=== PATIENT | female | born 1940 | race Two or more races ===

== ENCOUNTER 2022-10-02 20:21 | Inpatient (IN) | payer MEDICARE ==
[~2022-10-02] VITALS: Ht 172.7 cm; Wt 61.2 kg
[2022-10-02] MEDS ORDERED: ACETAMINOPHEN 325 MG TABLET PO ONE (21:30)
--- NOTE | 2022-10-02 21:30 | NUR ---
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 PATIENT IS AAOX4. ABLE TO MAKE NEEDS KNOWN. PATIENT REFUSED TO HAVE HIS RIGHT LEG REPOSITIONED BECAUSE IT WILL CAUSE HER TOO MUCH PAIN. VITALS CHECKED.
[2022-10-02] MEDS ORDERED: ACETAMINOPHEN 325 MG TABLET ONE (21:33)
--- NOTE | 2022-10-02 21:46 | NUR ---
X-RAY AT BEDSIDE
--- NOTE | 2022-10-02 22:02 | NUR ---
COVID TEST DONE, SENT TO LAB
--- NOTE | 2022-10-02 22:37 | NUR ---
PATIENT TAKEN TO CT
[2022-10-02 22:44] LABS: BASOPHILS # (AUTO) 0.1 K/uL (0.0-0.2); BASOPHILS % (AUTO) 0.4 % (0.0-2.0); EOSINOPHILS % (AUTO) 0.1 % (0.0-6.0); HEMATOCRIT 32 % (33-45); HEMOGLOBIN 10.6 g/dL (11.5-14.8); LYMPHOCYTES # (AUTO) 0.4 K/uL (0.8-4.8); LYMPHOCYTES % (AUTO) 2.1 % (20.0-44.0); MEAN CORPUSCULAR HGB CONC 33 g/dl (31.0-36.0); MEAN CORPUSCULAR VOLUME 99 fL (82-100); MONOCYTES # (AUTO) 0.8 K/uL (0.1-1.30); MONOCYTES % (AUTO) 4.1 % (2.0-12.0); NEUTROPHILS % (AUTO) 93.3 % (43.0-81.0); PLATELET COUNT (AUTO) 298 K/uL (150-450); RED BLOOD CELL COUNT(AUTO) 3.27 MIL/uL (4.0-5.2); WHITE BLOOD COUNT (AUTO) 20.3 K/uL (4.3-11.0)
--- NOTE | 2022-10-02 22:45 | NUR ---
BACK FROM CT
[2022-10-02] MEDS ORDERED: MORPHINE SULFATE INJ 4 MG/ML DISP.SYRIN ONE (22:46)
--- NOTE | 2022-10-02 22:55 | NUR ---
GIVEN IVP MORPHINE 4MG SLOWLY OREDERED BY DR OBIE Faustin
[2022-10-02 22:57] LABS: CALCIUM, SERUM 8.9 mg/dL (8.5-10.1); CARBON DIOXIDE 25 mmol/L (21-32); CHLORIDE 95 mmol/L (98-107); CREATININE 1.2 mg/dL (0.6-1.3); GLUCOSE 154 mg/dL (74-106); POTASSIUM 5.4 mmol/L (3.5-5.1); SODIUM SERUM 128 mmol/L (136-145); UREA NITROGEN, BLOOD 21 mg/dL (7-18)
[2022-10-02] MEDS ORDERED: MORPHINE SULFATE INJ 2 MG/ML DISP.SYRIN IV ONE (23:00)
--- NOTE | 2022-10-02 23:14 | NUR ---
DR. RAGLAND ON PHONE WITH MALOU TEIXEIRA FOR CONSULT.
[2022-10-02] MEDS ORDERED: IV NS 0.9% 1,000 ML IV ONE (23:30)
[2022-10-02] MEDS ORDERED: HYDROMORPHONE 1 MG/1 ML DISP.SYRIN IV ONE (23:30)
[2022-10-03] MEDS ORDERED: ACETAMINOPHEN 325 MG TABLET PO PRN
[2022-10-03] MEDS ORDERED: ONDANSETRON HCL/PF 4 MG/2 ML VIAL IVP PRN
--- NOTE | 2022-10-03 | NUR ---
patient taken to ct
--- NOTE | 2022-10-03 00:11 | NUR ---
back from ct
--- NOTE | 2022-10-03 00:12 | NUR ---
REPORT GIVEN TO BREANA YEE
--- NOTE | 2022-10-03 00:55 | NUR ---
JORDAN RECEIVED FROM ER VIA GURCHARLY AN 82 Y/O FEMALE S/P FALL AT HOME TRANSFRRED TO BED, IN SEVERE HIP PAIN, WITH AUDIBLE WHEEZING BRANDON LUNG REINOSO. STATES SHE IS 02 DEPENDENT AND COPD. SMOKING HALF PACK A DAY TILL PRESENT. UNABLE TO ANSWER MUCH SEC TO SOB AND SEVERE PAIN. PRESENT IVF TO CONSUME INFUSING AT 75CC/HR. RIGHT LEG UNDERNEATH LEFT LEG, UNABLE TO STRAIGHTEN AND SO LEFT LEG STATES UPON MINIMAL EXERTION PAIN RADIATING TO RIGHT HIP WHICH WAS SAID TO BE UNBEARABLE. MAINTAINED 02 AT 2 LITERS V/S MONITORED. TRYING TO C PADMA DOWN. PAIN MGT DISCUSSED TO PT, INSISTING TO HAVE MORE PAIN MED. NO FURTHER ORDERS FROM MD. NEED ORTH MD TO SEE PATIENT TODAY. WILL KEEP PATIENT NPO FOR NOW. TO CONTINUE.
[2022-10-03 01:00] VITALS: BP 138/64
--- NOTE | 2022-10-03 01:05 | NUR ---
TRANSFERRED TO ROOM
--- NOTE | 2022-10-03 01:10 | NUR ---
MSRN REFUSED TO HAVE OLD BEDSHEETS REMOVED AND OWN CLOTHES SEC TO SEVERE HIP AND LEG PAIN AND GETTING SOB ON MINIMAL EXERTION . WANTED TO HAVE MORE TIME TO REST OF THIS TIME. WAN STANDBY REQUESTED. WILL CALL ONCE READY.
[2022-10-03] MEDS ORDERED: ENOXAPARIN SODIUM 40 MG/0.4 ML DISP.SYRIN SQ ONE (01:35)
[2022-10-03] MEDS: IV NS 0.9% 1,000 ML IV SCH ×3 (01:53→23:22)
[2022-10-03] MEDS ORDERED: VANCOMYCIN 1 GM /D5W 250 ML PB IV ONE (01:56)
[2022-10-03] MEDS ORDERED: CEFEPIME 1 GM in IV D5W 50 ML IV ONE (02:00)
[2022-10-03] MEDS ORDERED: CEFEPIME 1 GM VIAL ONE (02:15)
[2022-10-03] MEDS ORDERED: VANCOMYCIN 1 GM in IV D5W 250ml IV ONE (02:30)
[2022-10-03] MEDS: MORPHINE SULFATE INJ 2 MG/ML DISP.SYRIN IV PRN ×4 (03:50→17:55)
--- NOTE | 2022-10-03 04:16 | NUR ---
JORDAN LOVE STARTED TO BE FOLLOWED BY MAXIPIME IV. ELEVATED WBC.
[2022-10-03] MEDS ORDERED: POTA20TA83 PO (04:27)
[2022-10-03] MEDS ORDERED: ASPI-1169 PO (04:27)
[2022-10-03] MEDS ORDERED: LISI20TA31 PO (04:27)
[2022-10-03] MEDS ORDERED: ALBU2.5V38 IH (04:27)
[2022-10-03] MEDS ORDERED: FERR15DR23 PO (04:27)
[2022-10-03] MEDS ORDERED: COMBIVENT INH (04:27)
[2022-10-03] MEDS ORDERED: BUDE10.2 INH (04:27)
[2022-10-03] MEDS ORDERED: ACET-73 PO (04:27)
[2022-10-03] MEDS ORDERED: [UNRECOGNIZED DRUG - OTHER] INH (04:27)
[2022-10-03] MEDS ORDERED: [UNRECOGNIZED DRUG - CODE] EACHEYE (04:27)
[2022-10-03] MEDS ORDERED: FOLI1CAP7 PO (04:27)
[2022-10-03] MEDS ORDERED: MECO10005 PO (04:27)
[2022-10-03] MEDS ORDERED: FURO20TA4 PO (04:27)
[2022-10-03] MEDS ORDERED: CHOL200013 PO (04:27)
[2022-10-03] MEDS ORDERED: MV-M1CAP18 EACHEYE (04:27)
--- NOTE | 2022-10-03 06:30 | NUR ---
MSRN AGREED TO HAVE GOWN ON, AND PANTS CUTOFF. ABLE TO REPOSITIONED RIGHT LEG THIS TIME SUPPORTED WITH PILLOWS. AGREED TO HAVE VALUABLES PLACE TO SAFE. WILL ENDORSED TO INCOMING RN
[2022-10-03 06:51] LABS: BASOPHILS % (AUTO) 0.1 % (0.0-2.0); HEMATOCRIT 29 % (33-45); HEMOGLOBIN 9.5 g/dL (11.5-14.8); LYMPHOCYTES # (AUTO) 0.7 K/uL (0.8-4.8); LYMPHOCYTES % (AUTO) 4.2 % (20.0-44.0); MEAN CORPUSCULAR HGB CONC 33 g/dl (31.0-36.0); MEAN CORPUSCULAR VOLUME 99 fL (82-100); MONOCYTES # (AUTO) 1.4 K/uL (0.1-1.30); MONOCYTES % (AUTO) 8.5 % (2.0-12.0); NEUTROPHILS # (AUTO) 14.8 K/uL (1.8-8.9); NEUTROPHILS % (AUTO) 87.2 % (43.0-81.0); PLATELET COUNT (AUTO) 293 K/uL (150-450); RED BLOOD CELL COUNT(AUTO) 2.92 MIL/uL (4.0-5.2); WHITE BLOOD COUNT (AUTO) 16.9 K/uL (4.3-11.0)
[2022-10-03 07:00] VITALS: BP 113/59
[2022-10-03 07:18] LABS: ALANINE AMINOTRANSFERASE 31 U/L (12-78); ALBUMIN 3.8 g/dL (3.4-5.0); ALKALINE PHOSPHATASE 91 U/L (46-116); ASPARTATE AMINOTRANSFERASE 29 U/L (15-37); BILIRUBIN,TOTAL 0.6 mg/dL (0.2-1.0); CALCIUM, SERUM 8.8 mg/dL (8.5-10.1); CARBON DIOXIDE 26 mmol/L (21-32); CHLORIDE 95 mmol/L (98-107); CREATININE 1.9 mg/dL (0.6-1.3); GLUCOSE 148 mg/dL (74-106); MAGNESIUM 2.3 mg/dL (1.8-2.4); PHOSPHORUS 5.4 mg/dL (2.5-4.9); POTASSIUM 5.3 mmol/L (3.5-5.1); SODIUM SERUM 129 mmol/L (136-145); TOTAL PROTEIN, SERUM 6.3 g/dL (6.4-8.2); UREA NITROGEN, BLOOD 27 mg/dL (7-18)
--- NOTE | 2022-10-03 07:48 | NUR ---
MS RN OPENING NOTE RECEIVED PATIENT AWAKE IN BED, A/O X 4, ON 02 NC AT 2L. NO S/S OF DISTRESS NOTED; WITH IV ACCESS AT LAC G#20 NS @ 75ML PER HOUR; NO PAIN AT THIS TIME. ENCOURAGED VERBALIZATION OF NEEDS; SAFETY MEASURES IMPLEMENTED, BED LOCKED IN LOWEST POSITION, SIDE RAILS UP X 2, CALL LIGHT WITHIN REACH, BED ALARM ON; WILL CONTINUE TO MONITOR THROUGHOUT SHIFT
[2022-10-03] MEDS: ALBUTEROL FS 2.5 MG/3 ML VIAL.NEB NEB SCH ×4 (08:27→20:52)
[2022-10-03] MEDS: IPRATROPIUM NEB FS 0.5 MG/2.5 ML AMPUL.NEB NEB SCH ×4 (08:27→20:52)
--- NOTE | 2022-10-03 08:53 | NUR ---
RN NOTE PATIENT COMPLAINED OF RIGHT HIP PAIN. RATE 9/10. MORPHINE 2MG GIVEN. WILL CONTINUE TO MONITOR PATIENT.
[2022-10-03] MEDS ORDERED: VANCOMYCIN 500 MG in IV D5W 100 ML IV ONE (10:00)
--- NOTE | 2022-10-03 10:00 | NUR ---
RN NOTES DR. BYRD ORDERED A LAZCANO CATH FOR THE PATIENT. LAZCANO CATHETER DONE. NO BLEEDING. CLEAR URINE. WILL CONTINUE TO MONITOR PATIENT.
[2022-10-03] MEDS ORDERED: SODIUM POLYSTYRENE SULF. PWD 15 GM UDC PO ONE (10:30)
[2022-10-03] MEDS: methylPREDNISolone SOD SUCC 125 MG/2ML VIAL IV SCH ×3 (11:02→21:29)
[2022-10-03] MEDS: CEFEPIME 2 GM in IV D5W 100 ML IV SCH (11:11)
[2022-10-03] MEDS ORDERED: LATA2.5D15 EACHEYE (12:28)
[2022-10-03] MEDS ORDERED: FERR325T24 PO (12:28)
[2022-10-03] MEDS ORDERED: FOLI0.4T6 PO (12:28)
[2022-10-03] MEDS ORDERED: IPRA4AER IH (12:28)
[2022-10-03] MEDS ORDERED: CYAN-51 PO (12:28)
[2022-10-03] MEDS ORDERED: CHOL100043 PO (12:28)
--- NOTE | 2022-10-03 13:06 | NUR ---
RN NOTE PATIENT COMPLAINED OF RIGHT HIP PAIN. RATE 9/10. MORPHINE 2MG GIVEN. WILL CONTINUE TO MONITOR PATIENT.
[2022-10-03] MEDS ORDERED: ALBUTEROL FS 2.5 MG/3 ML VIAL.NEB IH PRN (14:30)
[2022-10-03] MEDS ORDERED: Medication Not On Formulary EA (Ipratropium/Albuterol Sulfate (Combivent Respimat 20-100 IH PRN (14:30)
[2022-10-03] MEDS: BUDESONIDE RESPULE INH 0.5 MG/2 ML AMPUL.NEB NEB SCH ×2 (15:53→20:52)
[2022-10-03 16:00] VITALS: BP 100/52
[2022-10-03] MEDS ORDERED: Medication Not On Formulary EA (Budesonide/Formoterol Fumarate (Symbicort 160-4.5 Mcg In INH SCH (17:00)
--- NOTE | 2022-10-03 17:55 | NUR ---
RN NOTE PATIENT COMPLAINED OF RIGHT HIP PAIN. RATE 9/10. MORPHINE 2MG GIVEN. WILL CONTINUE TO MONITOR PATIENT.
--- NOTE | 2022-10-03 18:43 | NUR ---
MS RN OPENING NOTE PATIENT AWAKE IN BED USING HER PHONE, A/O X 4, ON NC AT 2L. NO S/S OF DISTRESS NOTED; WITH IV ACCESS AT L WRIST G#22 NS @ 125ML PER HOUR; WITH LAZCANO CATHETER FR 16. DUE MEDS GIVEN. ENCOURAGED VERBALIZATION OF NEEDS; SAFETY MEASURES IMPLEMENTED, BED LOCKED IN LOWEST POSITION, SIDE RAILS UP X 2, CALL LIGHT WITHIN REACH, BED ALARM ON; WILL ENDORSE TO THE SMALL PRODUCTS II ASSEMBLER NURSE FOR PILI. Addendum: 10/03/22 at 1856 by MALLORIE KUMRAI RN MS RN CLOSING NOTE
--- NOTE | 2022-10-03 19:30 | NUR ---
MSRN AWAKENED WHEN CALLED RIGHT HIP PAIN TOLERABLE STATED PAIN TOLERABLE WHEN NOT MOVING. LAZCANO TO GRAVITY OUTPUT MONITORED. NPO FOR SURGERY PRATIK AT 1730. AUDIBLE WHEEZING, ON HHN TREATMENT Q 6HR PRN. PRESENT IVF INFUSING WELL REMINDED TO CALL STAFF FOR ANY DISCOMFORTS. CALL LIGHT WITHIN REACH, TO CONTINUE.
[2022-10-03 20:00] VITALS: BP 102/55
[2022-10-03] MEDS: LATANOPROST EYE DROP 0.005% 2.5 ML BOTTLE EACHEYE SCH (21:29)
--- NOTE | 2022-10-03 22:20 | NUR ---
MSRN OFFERED PAIN MED STATED NOT FOR NOW AND WILL CALL IF NEEDED. STILL REFUSED TO REMOVE BEDSHEETS UNDERNEATH HER, STATED SLIGHT MOVEMENT WILL CAUSE HER SPASM.. NO OTHER NEEDS MADE CLOSELY WATCHED..
[2022-10-04] MEDS ORDERED: ENOXAPARIN SODIUM 40 MG/0.4 ML DISP.SYRIN SQ SCH
[2022-10-04] MEDS: IPRATROPIUM NEB FS 0.5 MG/2.5 ML AMPUL.NEB NEB SCH ×6 (02:17→21:07)
[2022-10-04] MEDS: ALBUTEROL FS 2.5 MG/3 ML VIAL.NEB NEB SCH ×5 (02:17→21:07)
[2022-10-04] MEDS: methylPREDNISolone SOD SUCC 125 MG/2ML VIAL IV SCH ×3 (05:31→22:44)
[2022-10-04] MEDS: IV NS 0.9% 1,000 ML IV SCH (05:38)
[2022-10-04 05:48] LABS: BILIRUBIN,URINE 1+ (NEGATIVE); COLOR,URINE DARK YELLOW (YELLOW); EOSINOPHIL,URINE None Seen; LEUKOCYTE ESTERASE ,URINE NEGATIVE (NEGATIVE); NITRITE, URINE NEGATIVE (NEGATIVE); PH,URINE 5.5 (5.0-8.0); PROTEIN,URINE NEGATIVE (NEGATIVE); UGLUCOSE NEGATIVE (NEGATIVE); UROBILINOGEN,URINE 0.2 EU/dL (0.2)
[2022-10-04 05:50] LABS: BACTERIA,URINE Rare /HPF (None Seen); RBC,URINE 0-2 /HPF (0-2); SQUAMOUS EPITHELIAL CELL,UR Few /HPF (None Seen); WBC,URINE 0-2 /HPF (0-3)
[2022-10-04] MEDS: MORPHINE SULFATE INJ 2 MG/ML DISP.SYRIN IV PRN (06:13)
[2022-10-04 06:20] LABS: HEMATOCRIT 25 % (33-45); HEMOGLOBIN 8.3 g/dL (11.5-14.8); LYMPHOCYTES # (AUTO) 0.3 K/uL (0.8-4.8); LYMPHOCYTES % (AUTO) 1.9 % (20.0-44.0); MEAN CORPUSCULAR HGB CONC 33 g/dl (31.0-36.0); MEAN CORPUSCULAR VOLUME 99 fL (82-100); MONOCYTES # (AUTO) 0.5 K/uL (0.1-1.30); MONOCYTES % (AUTO) 3.6 % (2.0-12.0); NEUTROPHILS # (AUTO) 14.4 K/uL (1.8-8.9); NEUTROPHILS % (AUTO) 94.5 % (43.0-81.0); PLATELET COUNT (AUTO) 231 K/uL (150-450); RED BLOOD CELL COUNT(AUTO) 2.53 MIL/uL (4.0-5.2); WHITE BLOOD COUNT (AUTO) 15.2 K/uL (4.3-11.0)
[2022-10-04 06:50] LABS: ALANINE AMINOTRANSFERASE 41 U/L (12-78); ALBUMIN 3.2 g/dL (3.4-5.0); ALKALINE PHOSPHATASE 76 U/L (46-116); ASPARTATE AMINOTRANSFERASE 73 U/L (15-37); BILIRUBIN,TOTAL 0.4 mg/dL (0.2-1.0); CALCIUM, SERUM 8.3 mg/dL (8.5-10.1); CARBON DIOXIDE 21 mmol/L (21-32); CHLORIDE 98 mmol/L (98-107); CREATININE 1.6 mg/dL (0.6-1.3); GLUCOSE 154 mg/dL (74-106); MAGNESIUM 2.3 mg/dL (1.8-2.4); PHOSPHORUS 5.4 mg/dL (2.5-4.9); POTASSIUM 5.2 mmol/L (3.5-5.1); SODIUM SERUM 130 mmol/L (136-145); TOTAL PROTEIN, SERUM 5.9 g/dL (6.4-8.2); UREA NITROGEN, BLOOD 39 mg/dL (7-18)
--- NOTE | 2022-10-04 07:00 | NUR ---
MSRN FINALLY AGREED TO BE REPOSITIONED AND AM CARE. PRE MEDICATED WITH MORPHINE 2MG IVP. KEPT NPO, IVF CONTINUED
--- NOTE | 2022-10-04 07:30 | NUR ---
RN MS NOTES PT IN BED, AWAKE, ALERT AND ORIENTED, HAVING HER BREATHING TREATMENT AT THIS TIME, NO COMPLAINT OF PAIN, NOT IN DISTRESS, CALL LIGHT WITHIN REACH, ASSISTED WITH NEEDS.
[2022-10-04 08:00] VITALS: BP 134/63
[2022-10-04 08:37] LABS: IRON, SERUM 20 ug/dl (50-175); TOTAL IRON BINDING CAPACITY 264 ug/dl (250-450)
[2022-10-04] MEDS: ASPIRIN 81 MG TAB.CHEW PO SCH (09:00)
[2022-10-04] MEDS: CHOLECALCIFEROL 1,000 UNIT TABLET (VIT D3) PO SCH (09:00)
[2022-10-04] MEDS: FERROUS SULFATE (325 MG) 325 MG/TAB TABLET PO SCH (09:00)
[2022-10-04] MEDS: FOLIC ACID 1 MG TABLET PO SCH (09:00)
[2022-10-04] MEDS ORDERED: FUROSEMIDE 20 MG TABLET PO SCH (09:00)
[2022-10-04] MEDS: CYANOCOBALAMIN 500 MCG TABLET PO SCH (09:00)
[2022-10-04] MEDS ORDERED: [UNRECOGNIZED DRUG - OTHER] EACHEYE SCH (09:00)
[2022-10-04] MEDS: CEFEPIME 2 GM in IV D5W 100 ML IV SCH (09:13)
--- NOTE | 2022-10-04 09:43 | NUR ---
RN MS NOTES RECEIVED ORDER FROM ITZEL SORIANO TO TRANSFUSE I UNIT PRBC PRIOR TO TODAY'S SURGERY, ORDER NOTED AND CARRIED OUT, PT INFORMED.
[2022-10-04] MEDS: VANCOMYCIN 0.75 GM in IV D5W 250 ML IV SCH (09:49)
[2022-10-04 11:05] LABS: FERRITIN 442 ng/mL (8-388)
[2022-10-04 13:07] VITALS: BP 95/49
[2022-10-04 13:29] VITALS: BP 101/39
[2022-10-04 14:29] VITALS: BP 116/54
[2022-10-04] MEDS: BUDESONIDE RESPULE INH 0.5 MG/2 ML AMPUL.NEB NEB SCH ×2 (15:00→16:27)
[2022-10-04 16:25] VITALS: BP 112/88
[2022-10-04] MEDS: ALBUTEROL FS 2.5 MG/3 ML VIAL.NEB NEB PRN (16:48)
[2022-10-04] MEDS ORDERED: ANESTHESIA TRAY IN PYXIS 1 EA TRAY MC ONE (16:56)
[2022-10-04] MEDS ORDERED: BUPIVACAINE 0.25% 75 MG/30 ML VIAL ONE (16:56)
[2022-10-04] MEDS ORDERED: DOPamine 400MG/D5W 250ML RTU 250 ML ONE (17:14)
[2022-10-04] MEDS ORDERED: KETAMINE HCL (500MG/10ML) 50 MG/ML VIAL ONE (17:14)
[2022-10-04] MEDS ORDERED: FENTANYL PF 100MCG/2ML AMPUL ONE (17:14)
[2022-10-04] MEDS ORDERED: CALCIUM CHLORIDE 1,000 MG/10 ML DISP.SYRIN ONE (17:15)
[2022-10-04] MEDS ORDERED: FAMOTIDINE/PF INJ 20 MG/2 ML VIAL IV ONE (17:15)
[2022-10-04] MEDS ORDERED: ROPIVACAINE HCL 0.5% 5 MG/ML 30ML VIAL ONE (17:15)
[2022-10-04] MEDS ORDERED: ROCURONIUM BROMIDE 50 MG/5 ML ONE (17:15)
--- NOTE | 2022-10-04 17:15 | NUR ---
RN MS NOTES PT IN BED, AWAKE, ALERT AND ORIENTED, NO COMPLAINT OF PAIN LONG SHE IS NOT BEING MOVED, COMPLETED 1 UNIT PRBC ORDERED, BREATHING TREATMENT GIVEN, VITALS STABLE, STAT H/H ORDERED, AWAITING RESULTS, PICKED UP BY O.R. STAFF VIA BED, LEFT IN STABLE CONDITION.
[2022-10-04] MEDS ORDERED: ALBUMIN IV PRN (17:30)
[2022-10-04] MEDS ORDERED: ALBUTEROL FS 2.5 MG/3 ML VIAL.NEB NEB ONE (17:30)
[2022-10-04] MEDS ORDERED: ALBUTEROL SULFATE 8 GM HFA.AER.AD IH PRN (18:00)
[2022-10-04] MEDS ORDERED: methylPREDNISolone SOD SUCC 125 MG/2ML VIAL IV ONE (18:00)
[2022-10-04] MEDS ORDERED: SODIUM POLYSTYRENE SULF. PWD 15 GM UDC PO SCH (18:00)
[2022-10-04] MEDS ORDERED: SEVOFLURANE 250 ML BOTTLE IH ONE ×2 (18:26→18:28)
[2022-10-04] MEDS ORDERED: Magnesium 1 GM/2 ML VIAL ONE (18:48)
[2022-10-04] MEDS ORDERED: TRANEXAMIC ACID 1,000 MG/10 ML VIAL ONE (18:51)
[2022-10-04] MEDS ORDERED: LIDOCAINE 1% INJ 50 ML MDV IJ ONE (19:17)
[2022-10-04] MEDS ORDERED: MORPHINE SULFATE INJ 4 MG/ML DISP.SYRIN IV PRN (20:00)
[2022-10-04] MEDS ORDERED: DOCUSATE SODIUM 250 MG CAPSULE PO PRN (20:30)
[2022-10-04] MEDS ORDERED: ACETAMINOPHEN 325 MG TABLET PO PRN (20:30)
[2022-10-04] MEDS ORDERED: SENNOSIDES 8.6 MG TABLET PO PRN ×2 (20:30)
[2022-10-04] MEDS ORDERED: DOCUSATE SODIUM 100 MG CAPSULE PO PRN (20:30)
[2022-10-04] MEDS ORDERED: BISACODYL SUPP (10 MG) 10 MG/SUPP.RECT SUPP.RECT RC PRN (20:30)
[2022-10-04] MEDS ORDERED: HYDROCODONE/APAP 5/325MG TABLET PO PRN (21:00)
--- NOTE | 2022-10-04 21:00 | NUR ---
RN ROBERTA NOTES PT TRANSFERRED FROM OR. VSA STABLE BP 133/86, HR 94, RR 20, O2 SATURATION 93% ON 3 LPM OF SUPPLEMENTAL OXYGEN, TEMPERATURE 97.4 DEG F. PT IS DROWSY. NSR ON THE MONITOR. RIGHT FA IV G # 20 AND LEFT HAND G#18, BOTH WERE FLUSHED, PATENT AND INTACT. PRBC TRANSFUSION COMPLETED. NO BLEEDING FROM THE SURGICAL SITE. NO COMPLAINT OF PAIN, NOT IN DISTRESS. SAFETY MEASURES IMPLEMENTED, CALL LIGHT WITHIN REACH, BED IN LOW POSITION, WHEELS LOCKED. CONTINUE TO MONITOR
--- NOTE | 2022-10-04 21:00 | NUR ---
ADDITIONAL ROBERTA NOTE PT CAME FROM OR, S/P IM RODDING. PT IN BED. FC IS IN PLACE, SKIN IS INTACT. WILL CONTINUE TO MONITOR.
[2022-10-04] MEDS: IV NS 0.9% 1,000 ML IV PRN (21:50)
--- NOTE | 2022-10-04 21:50 | NUR ---
ROBERTA RN NOTE STARTED NS AT 125 ML/HR VIA RIGHT FA PERIPHERAL IV.
[2022-10-04 21:54] LABS: HEMATOCRIT 31 % (33-45); HEMOGLOBIN 10.5 g/dL (11.5-14.8); LYMPHOCYTES # (AUTO) 0.2 K/uL (0.8-4.8); LYMPHOCYTES % (AUTO) 1.1 % (20.0-44.0); MEAN CORPUSCULAR HGB CONC 34 g/dl (31.0-36.0); MEAN CORPUSCULAR VOLUME 95 fL (82-100); MONOCYTES # (AUTO) 0.9 K/uL (0.1-1.30); MONOCYTES % (AUTO) 5.2 % (2.0-12.0); NEUTROPHILS # (AUTO) 15.6 K/uL (1.8-8.9); NEUTROPHILS % (AUTO) 93.7 % (43.0-81.0); PLATELET COUNT (AUTO) 160 K/uL (150-450); WHITE BLOOD COUNT (AUTO) 16.6 K/uL (4.3-11.0)
[2022-10-04] MEDS: LATANOPROST EYE DROP 0.005% 2.5 ML BOTTLE EACHEYE SCH (22:41)
[2022-10-04] MEDS: ENOXAPARIN SODIUM 30 MG/0.3 ML DISP.SYRIN SQ SCH (22:43)
[2022-10-05] VITALS: BP 121/53
[2022-10-05] MEDS: ANCEF 1 GM/50 ML D5W IV SCH ×4 (01:16→10:48)
[2022-10-05] MEDS: ALBUTEROL FS 2.5 MG/3 ML VIAL.NEB NEB SCH ×4 (01:17→20:23)
[2022-10-05] MEDS: IPRATROPIUM NEB FS 0.5 MG/2.5 ML AMPUL.NEB NEB SCH ×4 (01:17→20:23)
[2022-10-05 04:00] VITALS: BP 112/57
[2022-10-05] MEDS: methylPREDNISolone SOD SUCC 125 MG/2ML VIAL IV SCH ×3 (04:42→17:20)
[2022-10-05 05:55] LABS: HEMATOCRIT 27 % (33-45); HEMOGLOBIN 9.1 g/dL (11.5-14.8); LYMPHOCYTES # (AUTO) 0.2 K/uL (0.8-4.8); LYMPHOCYTES % (AUTO) 1.3 % (20.0-44.0); MEAN CORPUSCULAR HGB CONC 34 g/dl (31.0-36.0); MEAN CORPUSCULAR VOLUME 94 fL (82-100); MONOCYTES # (AUTO) 1.1 K/uL (0.1-1.30); MONOCYTES % (AUTO) 6.4 % (2.0-12.0); NEUTROPHILS # (AUTO) 16.5 K/uL (1.8-8.9); NEUTROPHILS % (AUTO) 92.3 % (43.0-81.0); PLATELET COUNT (AUTO) 159 K/uL (150-450); RED BLOOD CELL COUNT(AUTO) 2.86 MIL/uL (4.0-5.2); WHITE BLOOD COUNT (AUTO) 17.8 K/uL (4.3-11.0)
[2022-10-05] MEDS: IV NS 0.9% 1,000 ML IV PRN ×2 (06:18→20:38)
[2022-10-05 06:22] LABS: ALANINE AMINOTRANSFERASE 44 U/L (12-78); ALKALINE PHOSPHATASE 56 U/L (46-116); ASPARTATE AMINOTRANSFERASE 78 U/L (15-37); BILIRUBIN,TOTAL 0.4 mg/dL (0.2-1.0); CALCIUM, SERUM 8.3 mg/dL (8.5-10.1); CARBON DIOXIDE 21 mmol/L (21-32); CHLORIDE 103 mmol/L (98-107); GLUCOSE 127 mg/dL (74-106); MAGNESIUM 2.8 mg/dL (1.8-2.4); PHOSPHORUS 4.1 mg/dL (2.5-4.9); POTASSIUM 4.3 mmol/L (3.5-5.1); SODIUM SERUM 133 mmol/L (136-145); TOTAL PROTEIN, SERUM 5.3 g/dL (6.4-8.2); UREA NITROGEN, BLOOD 33 mg/dL (7-18)
--- NOTE | 2022-10-05 06:52 | NUR ---
RN ROBERTA CLOSING NOTES PATIENT IN BED, SLEEPING. VS STABLE. PATIENT ON 3 LPM OF SUPPLEMENTAL OXYGEN, SATURATION 93%, NO SOB. NSR ON THE MONITOR, HR 78. RIGHT FA G#20, PATENT AND INTACT. NO BLEEDING FROM THE SURGICAL SITE. NO COMPLAINT OF PAIN, PATIENT NOT IN DISTRESS. LAZCANO CATHETER INTACT, DRAINING YELLOW URINE. SAFETY MEASURES IMPLEMENTED, CALL LIGHT WITHIN REACH, BED IN LOW POSITION, WHEELS LOCKED, RAILS X2 UP. CONTINUE TO MONITOR
[2022-10-05] MEDS: BUDESONIDE RESPULE INH 0.5 MG/2 ML AMPUL.NEB NEB SCH ×2 (07:22→13:14)
--- NOTE | 2022-10-05 07:30 | NUR ---
ROBERTA RN AM NOTES PATIENT IN BED, AWAKE, ALERT ORIENTED X 4, S/P ORIF WITH IM RODDING BY DR. DAMICO 10/04/2022, CDI DRESSING ON SURGICAL SITE. ON 3L O2 NASAL CANULA, DENIES SOB,WHEEZING BLF ON AUSCULTATION. RESPIRATION UNLABORED. SR HR 87 ON MONITOR,DENIES CHEST PAIN/DISCOMFORT, IV ACCESS TO RIGHT FA G 20 LEAKING. WILL RESTART ON A NEW SITE., SEE NURSING FLOWSHEET FOR SKIN ISSUES,LAZCANO CATH IN PLACE, DRAINING YELLOW COLORED URINE VIA GRAVITY. REGULAR DIET. SAFETY MEASURES IMPLEMENTED, CALL LIGHT WITHIN REACH, BED IN LOW POSITION, WHEELS LOCKED, RAILS X2 UP. CONTINUE TO MONITOR FOR PHYSICAL THERAPY WBAT ON RIGHT EXTREMITY
[2022-10-05 08:00] VITALS: BP 108/52
--- NOTE | 2022-10-05 09:30 | NUR ---
RN NOTES DUE MEDS GIVEN
[2022-10-05] MEDS: CEFEPIME 2 GM in IV D5W 100 ML IV SCH (09:57)
[2022-10-05] MEDS: CYANOCOBALAMIN 500 MCG TABLET PO SCH (09:57)
[2022-10-05] MEDS: FERROUS SULFATE (325 MG) 325 MG/TAB TABLET PO SCH (09:57)
[2022-10-05] MEDS: ASPIRIN 81 MG TAB.CHEW PO SCH (09:57)
[2022-10-05] MEDS: CHOLECALCIFEROL 1,000 UNIT TABLET (VIT D3) PO SCH (09:57)
[2022-10-05] MEDS: FOLIC ACID 1 MG TABLET PO SCH (09:58)
[2022-10-05] MEDS: VANCOMYCIN 0.75 GM in IV D5W 250 ML IV SCH (10:48)
[2022-10-05 12:00] VITALS: BP 116/57
[2022-10-05] MEDS: SOD FERRIC GLUC 125 MG in IV NS 0.9% 100 ML IV SCH (13:57)
[2022-10-05 16:00] VITALS: BP 117/58
--- NOTE | 2022-10-05 19:36 | NUR ---
ROBERTA RN CLOSING NOTES PATIENT IN BED, AWAKE, ALERT ORIENTED X 4, S/P ORIF WITH IM RODDING BY DR. DAMICO 10/04/2022, CDI DRESSING ON SURGICAL SITE. ON 3L O2 NASAL CANULA, DENIES SOB,WHEEZING BLF ON AUSCULTATION. RESPIRATION UNLABORED. SR HR 57 ON MONITOR,DENIES CHEST PAIN/DISCOMFORT, IV ACCESS TO LEFT FA G 22, WITH NS AT 125 ML/HR. INFUSING WELL. SITE CLEAR. LAZCANO CATH IN PLACE, DRAINING YELLOW COLORED URINE VIA GRAVITY. TOTAL OUTPUT 600ML. REGULAR DIET. SAFETY MEASURES IMPLEMENTED, CALL LIGHT WITHIN REACH, BED IN LOW POSITION, WHEELS LOCKED, RAILS X2 UP. ALL NEEDS MET, PM CARE DONE . WILL ENDORSE TO NEXT SHIFT FOR PILI.
[2022-10-05 20:00] VITALS: BP 117/52
[2022-10-05] MEDS: ENOXAPARIN SODIUM 30 MG/0.3 ML DISP.SYRIN SQ SCH (20:43)
[2022-10-05] MEDS: HYDROCODONE/APAP 5/325MG TABLET PO PRN (20:44)
[2022-10-05] MEDS: LATANOPROST EYE DROP 0.005% 2.5 ML BOTTLE EACHEYE SCH (22:50)
[2022-10-06] VITALS (14 sets, daily range): BP systolic 110–131; BP diastolic 47–78
[2022-10-06] MEDS: ALBUTEROL FS 2.5 MG/3 ML VIAL.NEB NEB SCH ×4 (01:30→19:12)
[2022-10-06] MEDS: IPRATROPIUM NEB FS 0.5 MG/2.5 ML AMPUL.NEB NEB SCH ×4 (01:30→19:12)
--- NOTE | 2022-10-06 05:00 | NUR ---
RN NOTES PATIENT REFUSED TO BE CLEANED AND CHANGE. OFFERED 3X STILL REFUSED. RISK AND BENIFITS EXPLAINED TO THE PATIENT
[2022-10-06] MEDS: IV NS 0.9% 1,000 ML IV PRN ×2 (05:02→16:42)
[2022-10-06] MEDS: ALBUTEROL FS 2.5 MG/3 ML VIAL.NEB NEB PRN (05:13)
[2022-10-06 06:22] LABS: HEMATOCRIT 21 % (33-45); LYMPHOCYTES # (AUTO) 0.3 K/uL (0.8-4.8); LYMPHOCYTES % (AUTO) 2.3 % (20.0-44.0); MEAN CORPUSCULAR HGB CONC 33 g/dl (31.0-36.0); MEAN CORPUSCULAR VOLUME 96 fL (82-100); MONOCYTES # (AUTO) 1.3 K/uL (0.1-1.30); MONOCYTES % (AUTO) 9.9 % (2.0-12.0); NEUTROPHILS # (AUTO) 11.2 K/uL (1.8-8.9); NEUTROPHILS % (AUTO) 87.8 % (43.0-81.0); PLATELET COUNT (AUTO) 162 K/uL (150-450); RED BLOOD CELL COUNT(AUTO) 2.14 MIL/uL (4.0-5.2); WHITE BLOOD COUNT (AUTO) 12.7 K/uL (4.3-11.0)
[2022-10-06 06:38] LABS: ALANINE AMINOTRANSFERASE 32 U/L (12-78); ALKALINE PHOSPHATASE 38 U/L (46-116); ASPARTATE AMINOTRANSFERASE 43 U/L (15-37); BILIRUBIN,TOTAL 0.3 mg/dL (0.2-1.0); CALCIUM, SERUM 6.2 mg/dL (8.5-10.1); CARBON DIOXIDE 17 mmol/L (21-32); CHLORIDE 115 mmol/L (98-107); CREATININE 0.6 mg/dL (0.6-1.3); GLUCOSE 79 mg/dL (74-106); MAGNESIUM 1.8 mg/dL (1.8-2.4); PHOSPHORUS 2.2 mg/dL (2.5-4.9); SODIUM SERUM 139 mmol/L (136-145); TOTAL PROTEIN, SERUM 3.7 g/dL (6.4-8.2); UREA NITROGEN, BLOOD 27 mg/dL (7-18)
[2022-10-06 06:42] LABS: HEMOGLOBIN 6.8 g/dL (11.5-14.8)
[2022-10-06] MEDS: BUDESONIDE RESPULE INH 0.5 MG/2 ML AMPUL.NEB NEB SCH ×2 (07:05→15:00)
--- NOTE | 2022-10-06 07:45 | NUR ---
SCIENTIFIC PUBLICATIONS EDITOR OPENING NOTES RECEIVED PATIENT IN BED, SLEEPING, EASILY AWAKEN WITH VERBAL STIMULI. PATIENT ON 3 LPM OF SUPPLEMENTAL OXYGEN, TOLERATING WELL, NO SOB NOTED, RESPIRATION EVEN AND UNLABORED. NSR ON THE MONITOR, HR 70'S, RIGHT FA G#20, PATENT AND INTACT. NO BLEEDING FROM THE SURGICAL SITE. NO COMPLAINT OF PAIN AT THIS TIME. PATIENT NOT IN DISTRESS. LAZCANO CATHETER INTACT, DRAINING YELLOW URINE. SAFETY MEASURES IMPLEMENTED, CALL LIGHT WITHIN REACH, BED IN LOW POSITION, WHEELS LOCKED, RAILS X2 UP. PLAN OF CARE CONTINUE.
[2022-10-06] MEDS: POTASSIUM CHLORIDE 20 MEQ TAB.PRT.SR PO SCH ×3 (08:35→11:19)
[2022-10-06] MEDS: CYANOCOBALAMIN 500 MCG TABLET PO SCH (08:35)
[2022-10-06] MEDS: HYDROCODONE/APAP 5/325MG TABLET PO PRN ×2 (08:35→16:13)
[2022-10-06] MEDS: FERROUS SULFATE (325 MG) 325 MG/TAB TABLET PO SCH (08:35)
[2022-10-06] MEDS: CHOLECALCIFEROL 1,000 UNIT TABLET (VIT D3) PO SCH (08:35)
[2022-10-06] MEDS: FOLIC ACID 1 MG TABLET PO SCH (08:35)
[2022-10-06] MEDS: methylPREDNISolone SOD SUCC 125 MG/2ML VIAL IV SCH (08:36)
[2022-10-06] MEDS: ASPIRIN 81 MG TAB.CHEW PO SCH (08:37)
[2022-10-06 09:21] LABS: LYMPHOCYTES % (MANUAL) 3 % (16-48); MONOCYTES % (MANUAL) 9 % (0-11.0); NEUTROPHILS % (MANUAL) 88 (42-76)
[2022-10-06] MEDS: CEFEPIME 2 GM in IV D5W 100 ML IV SCH (09:23)
[2022-10-06] MEDS: VANCOMYCIN 1 GM in IV D5W 250ml IV SCH (10:49)
[2022-10-06] MEDS ORDERED: K PHOS NEUTRAL 250 MG TABLET PO ONE (16:00)
[2022-10-06] MEDS: SOD FERRIC GLUC 125 MG in IV NS 0.9% 100 ML IV SCH (16:13)
--- NOTE | 2022-10-06 17:55 | NUR ---
SURGICAL SUPERVISOR CLOSING NOTES PATIENT IN BED AWAKE, PATIENT ON 3 LPM OF SUPPLEMENTAL OXYGEN, TOLERATING WELL, NO SOB NOTED, RESPIRATION EVEN AND UNLABORED. NSR ON THE MONITOR, HR 70'S, RIGHT FA G#20, PATENT AND INTACT, FLUSHES WELL WITH NS RUNNING AT 125ML/HR,TOLERATING WELL. RIGHT HIP SURGICAL SITE DRESSING NOTED C/D/I, NO BLEEDING FROM THE SURGICAL SITE. NO COMPLAINT OF PAIN AT THIS TIME. PATIENT NOT IN DISTRESS. LAZCANO CATHETER INTACT, DRAINING YELLOW URINE. SAFETY MEASURES IMPLEMENTED, CALL LIGHT WITHIN REACH, BED IN LOW POSITION, WHEELS LOCKED, RAILS X2 UP. WILL ENDORSE TO NIGHT NURSE FOR PILI.
--- NOTE | 2022-10-06 18:03 | NUR ---
CHEST XRAY RESULTS SENT TO SARAH MILLS DNP, NO NEW ORDERS.
[2022-10-06 19:27] LABS: BASOPHILS % (AUTO) 0.2 % (0.0-2.0); HEMATOCRIT 29 % (33-45); HEMOGLOBIN 9.5 g/dL (11.5-14.8); LYMPHOCYTES # (AUTO) 0.4 K/uL (0.8-4.8); LYMPHOCYTES % (AUTO) 2.9 % (20.0-44.0); MEAN CORPUSCULAR HGB CONC 33 g/dl (31.0-36.0); MEAN CORPUSCULAR VOLUME 93 fL (82-100); MONOCYTES # (AUTO) 1.4 K/uL (0.1-1.30); MONOCYTES % (AUTO) 9.7 % (2.0-12.0); NEUTROPHILS # (AUTO) 12.6 K/uL (1.8-8.9); NEUTROPHILS % (AUTO) 87.2 % (43.0-81.0); PLATELET COUNT (AUTO) 194 K/uL (150-450); RED BLOOD CELL COUNT(AUTO) 3.12 MIL/uL (4.0-5.2); WHITE BLOOD COUNT (AUTO) 14.5 K/uL (4.3-11.0)
--- NOTE | 2022-10-06 19:30 | NUR ---
RN NOTES RECEIVED REPORT FROM MORNING SHIFT. PATIENT IN BED A/0 X4. WITH OXYGEN INHALATION AT 3LPM SATING 97% NO SOB NOT ON RESPIRATORY DISTRESS. WITH IV ACCESS AT RFA #20 PATENT RUNNING NS@125CC/HR NO REDNESS NO INFILTRATION NOTED. WITH R HI FRACTURE S/P ORIF. VITAL SIGNS TAKEN AND RECORDED. AFEBRILE. ALL SAFETY MEASURES IN PLACE. HOB ELEVATED. CALL LIGHT WITHIN REACH. BED ON LOWEST POSITION AND LOCKED. WILL CLOSELY MONITOR THE PATIENT
[2022-10-06] MEDS: ENOXAPARIN SODIUM 30 MG/0.3 ML DISP.SYRIN SQ SCH (21:42)
[2022-10-06] MEDS: LATANOPROST EYE DROP 0.005% 2.5 ML BOTTLE EACHEYE SCH (21:45)
[2022-10-07] VITALS: BP 139/66
[2022-10-07] MEDS: IPRATROPIUM NEB FS 0.5 MG/2.5 ML AMPUL.NEB NEB SCH ×4 (01:02→20:03)
[2022-10-07] MEDS: ALBUTEROL FS 2.5 MG/3 ML VIAL.NEB NEB SCH ×4 (01:02→20:03)
[2022-10-07] MEDS: IV NS 0.9% 1,000 ML IV PRN ×2 (02:23→10:25)
[2022-10-07 04:00] VITALS: BP 145/61
[2022-10-07] MEDS: HYDROCODONE/APAP 5/325MG TABLET PO PRN ×2 (04:51→16:09)
[2022-10-07] MEDS: ALBUTEROL FS 2.5 MG/3 ML VIAL.NEB NEB PRN ×2 (05:05→22:14)
[2022-10-07 05:52] LABS: EOSINOPHILS % (AUTO) 0.1 % (0.0-6.0); HEMATOCRIT 31 % (33-45); HEMOGLOBIN 10.1 g/dL (11.5-14.8); LYMPHOCYTES % (AUTO) 7.5 % (20.0-44.0); MEAN CORPUSCULAR HGB CONC 33 g/dl (31.0-36.0); MEAN CORPUSCULAR VOLUME 93 fL (82-100); MONOCYTES # (AUTO) 1.6 K/uL (0.1-1.30); MONOCYTES % (AUTO) 12.8 % (2.0-12.0); NEUTROPHILS # (AUTO) 10.2 K/uL (1.8-8.9); NEUTROPHILS % (AUTO) 79.6 % (43.0-81.0); PLATELET COUNT (AUTO) 202 K/uL (150-450); WHITE BLOOD COUNT (AUTO) 12.8 K/uL (4.3-11.0)
[2022-10-07 06:42] LABS: ALBUMIN 2.8 g/dL (3.4-5.0); ALKALINE PHOSPHATASE 58 U/L (46-116); ASPARTATE AMINOTRANSFERASE 53 U/L (15-37); BILIRUBIN,TOTAL 0.6 mg/dL (0.2-1.0); CALCIUM, SERUM 8.1 mg/dL (8.5-10.1); CARBON DIOXIDE 23 mmol/L (21-32); CHLORIDE 106 mmol/L (98-107); CREATININE 0.8 mg/dL (0.6-1.3); GLUCOSE 90 mg/dL (74-106); MAGNESIUM 2.2 mg/dL (1.8-2.4); PHOSPHORUS 2.8 mg/dL (2.5-4.9); POTASSIUM 4.5 mmol/L (3.5-5.1); SODIUM SERUM 135 mmol/L (136-145); TOTAL PROTEIN, SERUM 5.1 g/dL (6.4-8.2); UREA NITROGEN, BLOOD 28 mg/dL (7-18)
[2022-10-07 06:53] LABS: ALANINE AMINOTRANSFERASE 55 U/L (12-78)
--- NOTE | 2022-10-07 07:30 | NUR ---
FILTER PLANT OPERATOR OPENING NOTES RECEIVED PATIENT ON BED RESTING AND A/O X4. ON O2 AT 3LPM VIA NASAL CANNULA TOLERATING WELL. WITH IV ACCESS ON THE RIGHT FOREARM WITH IVF NS AT 125ML/HR INFUSING WELL. NO BLEEDING NOTED ON SURGICAL SITE. WITH LAZCANO CATHETER IN PLACED DRAINING YELLOW URINE OUTPUT. SAFETY MEASURES IN PLACED. CALL LIGHT WITHIN REACH. BED ON LOWEST LOCKED POSITION, SIDE RAILS UP X. WILL CONTINUE TO MONITOR.
[2022-10-07] MEDS: BUDESONIDE RESPULE INH 0.5 MG/2 ML AMPUL.NEB NEB SCH ×2 (07:45→15:40)
[2022-10-07 08:00] VITALS: BP 145/75
[2022-10-07] MEDS: CEFEPIME 2 GM in IV D5W 100 ML IV SCH (08:47)
[2022-10-07] MEDS: CHOLECALCIFEROL 1,000 UNIT TABLET (VIT D3) PO SCH (08:47)
[2022-10-07] MEDS: FERROUS SULFATE (325 MG) 325 MG/TAB TABLET PO SCH (08:47)
[2022-10-07] MEDS: CYANOCOBALAMIN 500 MCG TABLET PO SCH (08:47)
[2022-10-07] MEDS: FOLIC ACID 1 MG TABLET PO SCH (08:47)
[2022-10-07] MEDS: ASPIRIN 81 MG TAB.CHEW PO SCH (08:47)
[2022-10-07] MEDS: VANCOMYCIN 1 GM in IV D5W 250ml IV SCH (10:13)
[2022-10-07] MEDS ORDERED: DOXY-326 PO (11:27)
[2022-10-07] MEDS ORDERED: CEFU500T66 PO (11:27)
[2022-10-07 12:00] VITALS: BP 121/76
[2022-10-07] MEDS: NICOTINE PATCH (21MG) 21 MG PATCH.TD24 TD SCH (13:22)
[2022-10-07 16:00] VITALS: BP 134/68
[2022-10-07] MEDS: SOD FERRIC GLUC 125 MG in IV NS 0.9% 100 ML IV SCH (16:09)
--- NOTE | 2022-10-07 16:43 | NUR ---
PER CM PENDING PLACEMENT MD MADE AWARE.
--- NOTE | 2022-10-07 18:52 | NUR ---
DIRECTOR OF INSTRUCTION CLOSING NOTES PATIENT ON BED RESTING AND A/O X4. ON O2 AT 3LPM VIA NASAL CANNULA TOLERATING WELL. WITH IV ACCESS ON THE RIGHT FOREARM WITH IVF NS AT 125ML/HR INFUSING WELL. NO BLEEDING NOTED ON SURGICAL SITE. WITH LAZCANO CATHETER IN PLACED DRAINING YELLOW URINE OUTPUT. DUE MEDS GIVEN. SAFETY MEASURES IN PLACED. CALL LIGHT WITHIN REACH. BED ON LOWEST LOCKED POSITION, SIDE RAILS UP X. WILL ENDORSE TO NEXT SHIFT FOR PILI.
[2022-10-07 20:00] VITALS: BP 123/44
[2022-10-07] MEDS: LATANOPROST EYE DROP 0.005% 2.5 ML BOTTLE EACHEYE SCH (21:31)
[2022-10-07] MEDS: ENOXAPARIN SODIUM 30 MG/0.3 ML DISP.SYRIN SQ SCH (21:34)
--- NOTE | 2022-10-07 22:14 | NUR ---
PRN NEB TX GIVEN. PT COMPLAIN OF SOB. RN AWARE.
[2022-10-08] VITALS: BP 114/64
[2022-10-08] MEDS: IPRATROPIUM NEB FS 0.5 MG/2.5 ML AMPUL.NEB NEB SCH ×4 (01:24→19:44)
[2022-10-08] MEDS: ALBUTEROL FS 2.5 MG/3 ML VIAL.NEB NEB SCH ×4 (01:24→19:44)
[2022-10-08] MEDS: IV NS 0.9% 1,000 ML IV PRN ×2 (01:32→10:04)
[2022-10-08 04:00] VITALS: BP 139/66
[2022-10-08 06:42] LABS: CALCIUM, SERUM 7.8 mg/dL (8.5-10.1); CARBON DIOXIDE 25 mmol/L (21-32); CHLORIDE 102 mmol/L (98-107); CREATININE 0.7 mg/dL (0.6-1.3); GLUCOSE 110 mg/dL (74-106); POTASSIUM 4.3 mmol/L (3.5-5.1); SODIUM SERUM 133 mmol/L (136-145); UREA NITROGEN, BLOOD 16 mg/dL (7-18)
--- NOTE | 2022-10-08 07:09 | NUR ---
DRAPERY ESTIMATOR closing note Pt in stable condition, breathing even and unlabored, sleeping at this time, all due meds given per MD orders tolerated well, all basic needs met and anticipated, will continue to monitor
--- NOTE | 2022-10-08 07:10 | NUR ---
BOATBUILDER SUPERVISOR OPENING NOTES Received pt asleep in bed. No signs of pain or discomfort at this time. Pt is currently on 3L NC and tolerating it well. IV access on RFA 20G patent and intact running NS at 125cc/hr. HOB elevated to 30-45 degrees. Siderails up at all times x4. Call light within reach. Will continue to monitor.
[2022-10-08 08:00] VITALS: BP 144/68
[2022-10-08] MEDS: BUDESONIDE RESPULE INH 0.5 MG/2 ML AMPUL.NEB NEB SCH ×2 (08:01→16:00)
[2022-10-08] MEDS: CEFEPIME 2 GM in IV D5W 100 ML IV SCH (08:21)
[2022-10-08] MEDS: CHOLECALCIFEROL 1,000 UNIT TABLET (VIT D3) PO SCH (08:24)
[2022-10-08] MEDS: NICOTINE PATCH (21MG) 21 MG PATCH.TD24 TD SCH (08:24)
[2022-10-08] MEDS: ASPIRIN 81 MG TAB.CHEW PO SCH (08:24)
[2022-10-08] MEDS: FERROUS SULFATE (325 MG) 325 MG/TAB TABLET PO SCH (08:24)
[2022-10-08] MEDS: FOLIC ACID 1 MG TABLET PO SCH (08:24)
[2022-10-08] MEDS: CYANOCOBALAMIN 500 MCG TABLET PO SCH (08:27)
[2022-10-08] MEDS ORDERED: POTASSIUM CHLORIDE 20 MEQ TAB.PRT.SR PO SCH (09:30)
[2022-10-08] MEDS: VANCOMYCIN 1 GM in IV D5W 250ml IV SCH (10:04)
[2022-10-08 12:00] VITALS: BP 139/76
[2022-10-08] MEDS: SOD FERRIC GLUC 125 MG in IV NS 0.9% 100 ML IV SCH (14:45)
[2022-10-08 16:00] VITALS: BP 128/51
--- NOTE | 2022-10-08 16:34 | NUR ---
PRE WAVE ASSEMBLER NOTES [employer] major case detective Saturnino called to inform that pt is going to be discharged to [facility] room 216A and that coal picker time is at 1930. [facility] called to and gave report to [place]. Pt made aware.
[2022-10-08] MEDS ORDERED: ENSURE ENLIVE 237 ML LIQUID (VANILLA) PO SCH (17:00)
--- NOTE | 2022-10-08 18:35 | NUR ---
DUDE RANCH MANAGER CLOSING NOTES All due meds and tx given as ordered. Pt tolerated everything well. All needs attended to. Pt is still on 3L NC and tolerating it well. IV access on RFA 20G patent and intact. Call light within reach. Will endorse to oncoming shift that pt will be discharged to [facility] and turkey picker time ETA is at 1930.
--- NOTE | 2022-10-08 19:00 | NUR ---
CUSTOMER SUPPORT ENGINEER OPENING NOTE RECEIVED PT IN STABLE CONDITION, BREATHING EVEN AND UNLABORED, ON O2 VIA NC, PT WAITING TO BE DC TO SNF
--- NOTE | 2022-10-08 20:01 | NUR ---
DC NOTE PT BEING DC AT THIS TIME TO [facility], ROOM 216A, PT PICKED UP VIA GURNEY BY 2 EMT FROM [facility], O2 VIA NC PATENT TO PORTABLE O2 TANK, IV SITE DC, TELE MONITOR REMOVED, LAST VS 134/67, 89, 95%, 18, 98.1F, PT C/O PAIN NORCO 5/325MG P.O RENDERED AT THIS TIME, PT IN STABLE CONDITION AT TIME OF DEPARTURE
[2022-10-08] MEDS: HYDROCODONE/APAP 5/325MG TABLET PO PRN (20:10)
== END 2022-10-08 20:01 | DRG 480 ==
LOC: ER 20:25 → MED 10-03 00:01 → TELE-TD 10-04 21:06 → TELE1 10-05 20:20 → UNDODISIN 10-09 03:50
PROVIDERS: ADMIT Internal Medicine; ATTEND Nurse Practitioner Acute Care
PROC: 0QS606Z Reposition Right Upper Femur with Intramedullary Internal Fixation Device, Open Approach (ICD-10-PCS; principal; 2022-10-04)
PROC: 30233N1 Transfusion of Nonautologous Red Blood Cells into Peripheral Vein, Percutaneous Approach (ICD-10-PCS; 2022-10-04)
DX: M84.451A Pathological fracture, right femur, initial encounter for fracture (principal); N17.0 Acute kidney failure with tubular necrosis; C34.90 Malignant neoplasm of unspecified part of unspecified bronchus or lung; J44.1 Chronic obstructive pulmonary disease with (acute) exacerbation; E87.1 Hypo-osmolality and hyponatremia; W01.0XXA Fall on same level from slipping, tripping and stumbling without subsequent striking against object, initial encounter; K59.00 Constipation, unspecified; Y92.009 Unspecified place in unspecified non-institutional (private) residence as the place of occurrence of the external cause; Z79.82 Long term (current) use of aspirin; Z79.51 Long term (current) use of inhaled steroids; Z79.899 Other long term (current) drug therapy; E87.5 Hyperkalemia; E87.6 Hypokalemia; Z20.822 Contact with and (suspected) exposure to COVID-19; E86.1 Hypovolemia; I10 Essential (primary) hypertension; D64.9 Anemia, unspecified; E86.0 Dehydration; F17.210 Nicotine dependence, cigarettes, uncomplicated; Y93.01 Activity, walking, marching and hiking
CPT/HCPCS: 36415; 71045-TC; 71250-TC; 72170-TC; 73030-TC; 73501; 73552; 73700-TC; 76770-TC; 80048-TC; 80053-TC; 80202-TC; 81001; 82728-TC; 83540-TC; 83735-TC; 84100-TC; 85025-TC; 85027-TC; 85730-TC; 86850-TC; 87040-TC; 87081-TC; 93307-TC; 94799-TC; 97110-TC; 97112-TC; 97116-TC; 97530-TC; A4216; A4223; A6209; A6253; C1713; C9803; G0378; J0690; J0692; J1170; J1265; J1650; J2001; J2270; J2370; J2405; J2704; J2765; J2795; J2916; J2930; J3010; J3370; J3475; J3490; J7030; J7042; J7050; J7060; P9016; P9047